=== PATIENT | female | born 1955 | race African-American/Black ===

== ENCOUNTER 2018-12-21 12:15 | Emergency (ER) | payer OTHER, SELFPAY ==
[2018-12-21 12:17] VITALS: BP 147/89; PULSE 105; RESP 17; TEMP 36.8; O2SAT 98; BMI 28.9
--- NOTE | 2018-12-21 12:41 | ED.VIS.GEN ---
History of Present Illness Chief Complaint: Allergic Reaction Informant: Patient Onset: Yesterday Current Severity: Mild Narrative: She complains of a bee sting to the right ear lobule earring region occurred yesterday, she indicates she has local swelling she has no other complaints she has no difficulty swallowing or breathing no chest pain or shortness of breath she is been using baking soda salve to the area Past Medical History - Allergies and Home Meds Allergies/Adverse Reactions: Allergies Penicillins Allergy (Verified 12/21/18 12:19) Itching bees Allergy (Uncoded 12/21/18 12:25) Unknown Primary Care Physician: Care Physician,No Primary [Primary Care Provider] - Past Medical History: - - Unremarkable except as above Smoking Status: Current every day smoker Review of Systems General: Denies: Chills, Fever, Sweats Eyes: Denies: Visual changes - bilaterally, Diplopia ENT: Reports: - - Swelling involving where the right earring would be in the associated upper mandible no other complaints of any kind. Denies: Rhinorrhea, Sore throat Cardiovascular: Denies: Chest pain, Palpitations Respiratory: Denies: Dyspnea, Cough, Dyspnea on exertion Gastrointestinal: Denies: Abdominal pain, Nausea, Vomiting, Diarrhea, Melena, Hematochezia Genitourinary: Denies: Dysuria, Hematuria, Frequency Musculoskeletal: Denies: Back pain, Extremity Pain Skin: Denies: Rash, Wounds Neurological: Denies: Headache, Weakness, Numbness Physical Exam Vital Signs/Narrative: Vital Signs Temp Pulse Resp BP Pulse Ox 12/21/18 12:17 98.3 F 105 H 17 147/89 H 98 General: Well nourished, Well developed, No Acute Distress Head: Normocephalic, Atraumatic Eyes: Perrl, EOMI ENT: Moist mucous membranes, No rhinorrhea, - - Swelling to the right ear pain at region the TM is limited visualization the canals okay the HEENT exam is unremarkable the oral cavity is normal her speech is normal is no stridor drooling the neck is very supple the rest of exam is entirely unremarkable there are no systemic signs no skin lesions or rashes and again this occurred yesterday Neck: Supple, Nontender Cardiovascular: Regular rate, Regular rhythm, No murmurs Respiratory: No distress, CTA bilaterally, Chest nontender Abdomen: Soft, Nontender, Nondistended, Normal bowel sounds Back: Nontender, Normal Inspection Extremities: Nontender, No edema Skin: Normal color, No rash Neurological: Alert, Oriented x3, Cranial nerves II-XII grossly intact, Normal Strength, Normal Sensation Psychological: Normal affect, Normal Mood Diagnostic/Tx/Re-eval - Medical Decision Making Had a long conversation with the patient she is only been using baking soda salve this appears to be local reaction for last 24 hours has not changed since that occurred she is almost certain it was a be she is not going to be exposed to bees, she will at this time start taking Benadryl using Benadryl ointment ice and follow-up with your outpatient providers return for change in symptoms and then [id number] medications for pain Home stable Final impression Bee sting right ear region with localized reaction ED Disposition - Plan for ED Patient: Diagnosis: Bee sting reaction Instructions: ALLERGIC REACTION, Insect (General), ALLERGIC REACTION, Other (Local) Prescriptions: DiphenhydrAMINE [Benadryl] 25 mg PO TID PRN PRN #20 cap PRN Reason: Itching Prescription Printed Referrals: Care Physician,No Primary [Primary Care Provider] -
[2018-12-21 12:55] VITALS: RESP 14
== END 2018-12-21 12:55 | disposition home or self-care (01) ==
LOC: ED 12:52
PROVIDERS: Emergency Provider Emergency Medicine
DX: T63.441A Toxic effect of venom of bees, accidental (unintentional), initial encounter (principal); H93.8X1 Other specified disorders of right ear; Y92.9 Unspecified place or not applicable; F17.200 Nicotine dependence, unspecified, uncomplicated
CPT/HCPCS: 99282